=== PATIENT | male | born 1955 | race Caucasian/White ===

== ENCOUNTER → 2022-03-26 | Outpatient (CLI) | payer MEDICARE, SELFPAY ==
--- NOTE | 2022-03-26 10:54 | VDLE_ITS ---
Reason For Study: swelling RIGHT CFV is compressible, spontaneous, phasic, competent and demonstrates normal augmentation. FV is compressible, spontaneous, phasic, competent and demonstrates normal augmentation. POP V is compressible, spontaneous, phasic, competent and demonstrates normal augmentation. T/P Trunk is compressible. PTV is compressible. RT PerV is compressible. GSV is partially harvested. GSV below the knee is compressible. Procedure This is a venous duplex using B-mode, color flow and spectral Doppler. Exam performed in department. The exam was abbreviated due to the COVID 19 protocol. The exam was diagnostic. A preliminary report was called and/or faxed to Dr. Hoffman's nurse. VL/Venous Duplex US, Unilateral Interpretation Summary Deep veins of the right lower extremity are patent and compressible segmentally . There is no evidence of right lower extremity deep vein thrombosis. The right great sapheno us vein appears patent and compressible segmentally. Ordering Physician: Jarvis Hoffman Performed By: Himanshu Aleman RVT
== END | disposition home or self-care (01) ==
LOC: CVS 10:53
PROVIDERS: Referring Provider Surgery Trauma Surgery; Visit Provider Surgery Trauma Surgery
DX: R60.9 Edema, unspecified (principal); M79.89 Other specified soft tissue disorders
CPT/HCPCS: 93971

== ENCOUNTER → 2022-05-21 | Outpatient (CLI) | payer MEDICARE, SELFPAY ==
--- NOTE | 2022-05-21 09:14 | ADU_ITS ---
Reason For Study: Bilateral popliteal aneurysms, s/p Pop-PT bypass Right Velocities Left Velocities Ext. Iliac Artery, dist = 90.7 cm./sec. Ext Iliac Artery, dist = 84.6 cm./sec. Common Femoral Artery, mid = 49.3 cm./sec. Common Femoral Artery, mid = 58.8 cm./sec. Supf Femoral Artery, prox = 44.1 cm./sec. Supf. Femoral Artery, prox = 76.8 cm./sec. Supf Femoral Artery, mid = 51.4 cm./sec. Supf. Femoral Artery, mid = 78.5 cm./sec. Supf Femoral Artery, dist. = 22.6 cm./sec. Supf. Femoral Artery, dist = 72.3 cm./sec. Profunda Femoral Artery = 39.8 cm./sec. Profunda Femoral Artery = 44.3 cm./sec. Popliteal artery, no flow. Popliteal Artery, mid = 33 cm./sec. Popliteal to prox [employer] bypass. Post. Tibial Artery, prox = 65.1 cm./sec. Prox anastomosis, 35.5 cm/sec. Post Tibial Artery, mid = 50 cm./sec. Prox graft, 26.4 cm/sec. Post Tibial Artery, dist. = 61.3 cm./sec. Mid graft, 40 cm/sec. Peroneal Artery, prox = 40.5 cm./sec. Distal graft, 31.2 cm/sec. Peroneal Artery, mid = 50 cm./sec. Distal anastomosis, 46.9 cm/sec. Peroneal Artery,dist. = 33.9 cm./sec. Post. Tibial Artery, prox = 144.9 cm./sec. Ant.Tibial Artery, prox = 70.8 cm./sec. Post. Tibial Artery, mid = 32.2 cm./sec. Ant Tibial Artery, mid = 62.3 cm./sec. Post. Tibial Artery, dist = 27 cm./sec. Ant. Tibial Artery, distal = 56.6 cm./sec. Peroneal Artery, prox = 10 cm./sec. Popliteal artery, 1.26 x 1.33 x 1.21 cm. Peroneal Artery, mid = 13 cm./sec. Peroneal Artery,dist = 14.1 cm./sec. Ant. Tibial Artery, prox = 10 cm./sec. Ant. Tibial Artery, mid = 12.6 cm./sec. Ant. Tibial Artery, dist = 11 cm./sec. Procedure Exam performed in department. VL/US Art Duplex Bilat Lower Ext Interpretation Summary Patent right superficial femoral-posterior tibial bypass with decreased velocit ies throughout and elevated velocity at distal anastomosis consistent with >75% stenosis Left popliteal artery patent, 1.33 cm aneurysm present. Ordering Physician: Jarvis Hoffman Referring Physician: Mark Piña Performed By: Colleen Foster RVT
--- NOTE | 2022-05-21 09:14 | ART_ITS ---
Reason For Study: Bilateral popliteal aneurysms Procedure A bilateral lower extremity continuous wave Doppler with analog waveform analysis and ankle brachial indexes. Left Segmental Pressures Left brachial= 152mmHg. Left posterior tibial artery = 197mmHg. Left dorsalis pedis artery = 191mmHg. The left dorsalis pedis waveforms are triphasic. The left posterior tibial artery waveforms are triphasic. Right Segmental Pressures Right brachial= 156mmHg. Right posterior tibial artery = 74mmHg. Right dorsalis pedis artery = 121mmHg. The right dorsalis pedis waveforms are biphasic. The right posterior tibial artery waveforms are biphasic. Indices The right ankle brachial index by the dorsalis pedis is 0.78. The right ankle brachial index by the posterior tibial artery is 0.47. The left ankle brachial index by the dorsalis pedis is 1.22. The left ankle brachial index by the posterior tibial artery is 1.26. VL/Ankle Brachial Index Interpretation Summary Right ROXANNA 0.78, moderate arterial insufficiency. Doppler/PVR waveforms of the r ight ankle moderately diminished. Left ROXANNA 1.26, normal. Doppler/PVR waveforms of the left leg normal at rest. Ordering Physician: Jarvis Hoffman Referring Physician: Mark Piña Performed By: Colleen Foster RVT
== END | disposition home or self-care (01) ==
LOC: CVS 09:12
PROVIDERS: PCP Family Medicine; Referring Provider Surgery Trauma Surgery; Visit Provider Surgery Trauma Surgery
DX: I72.4 Aneurysm of artery of lower extremity (principal); Z48.812 Encounter for surgical aftercare following surgery on the circulatory system
CPT/HCPCS: 93922; 93925

== ENCOUNTER 2022-05-29 09:31 | Day surgery (SDC) | payer MEDICARE, SELFPAY ==
[2022-05-22 09:37] LABS: Absolute Lymphocyte Count 3.38 X10^3/uL (0.83-4.51); Absolute Neutrophil Count 2.8 X10^3/uL (2.0-7.7); Basophil# 0.15 X10^3/uL; Eosinophil# 0.28 X10^3/uL; Eosinophils% 3.8 % (0-5); Hematocrit 45.3 % (40-54); Hemoglobin 15.1 g/dL (13.0-16.5); Lymphocyte # 3.38 X10^3/ul (0.83-4.51); Lymphocyte % 45.9 % (19-41); Mean Corp Hgb Conc 33.3 g/dL (32-36); Mean Corpuscular Hgb 31.3 pg (27.0-32.0); Mean Platelet Vol. 10.1 fl (6.2-12.0); Monocyte% 8.2 % (0-10); NRBC Flagged by Analyzer 0 % (0-5); Neutrophil # 2.84 X10^3/uL (2.7-7.7); Neutrophil % 38.6 % (47-70); Platelet Count 305 K/mm3 (150-450); RBC Distribution Width CV 11.9 % (11.6-14.6); RBC Distribution Width SD 41.1 fl (35.1-43.9); Red Blood Count 4.82 M/mm3 (4.6-6.2); White Blood Count 7.4 K/mm3 (4.4-11.0)
[2022-05-22 09:59] LABS: Anion Gap 4 (5-15); BUN 14 mg/dL (7-18); Calcium,Total 8.8 mg/dL (8.5-10.1); Chloride 106 mmol/L (98-107); Creatinine, Serum 1.17 mg/dL (0.70-1.30); EST Glomerular Filtration Rate 67 mL/min (>60); Est Glom Filt Rate - Afr Amer 80 mL/min (>60); Glucose 113 mg/dL (74-106); Potassium 4.1 mmol/L (3.5-5.1); Sodium Level 139 mmol/L (136-145)
[2022-05-28 09:06] VITALS: BMI 34.7
[2022-05-29] VITALS (7 sets, daily range): BP systolic 147–163; BP diastolic 90–105; PULSE 57–71; RESP 16; TEMP 36.4–36.5; O2SAT 92–96
--- NOTE | 2022-05-29 10:25 | HP.PCM_ITS ---
[facility] - General General Date of Service: 05/29/22 Chief Complaint: Angiogram [facility] Narrative NGUYỄN HASSAN, is a 67 M who presents today for angiogram possible intervention. He is known to have bilateral popliteal aneurysms and is s/p repair of the right in October 2020 with saphenous bypass above knee to popliteal to PT, tibial thrombectomy. Lower extremity arterial duplex from 05/21/2022 revealed patent right superficial femoral-posterior tibial bypass with decreased velocities throughout and elevated velocity at distal anastomosis consistent with >75% stenosis. Patient also subsequently reported increase in symptoms similar to those he had prior to repair in E. Therefore, angiogram is being pursued to further evaluate and potentially address stenosis. Patient had discontinued Xarelto at office visit in March as imaging and symptoms had been stable to that point. He was restarted on the Xarelto in the last week leading up to surgery, he held two doses prior to procedure today. He has continued his daily ASA. He reports his symptoms have remained stable, no significant worsening. He denies N/V, F/C, CP, palpitations, presyncope/syncope, SOB today. He denies any significant medical events in interim since his last visit. No new medications. He is agreeable to proceeding with angiogram. [facility] Medical History Arterial aneurysm (~2020) Arthritis Hypertension Rectal bleed Thyroid disease Home Medications amlodipine 2.5 mg tablet (Norvasc) 2.5 mg PO DAILY 03/20/22 [History Last Taken 05/29/22] levothyroxine 25 mcg tablet (Synthroid) 25 mcg PO DAILY 03/20/22 [History Last Taken 05/29/22] rivaroxaban 20 mg tablet (Xarelto) 20 mg PO DAILY #1 TAB 03/20/22 [Rx Last Taken 05/26/22] aspirin 81 mg tablet,delayed release (Adult Aspirin Regimen) 81 mg PO DAILY 1 05/25/21 [History Last Taken 05/28/22] losartan 100 mg tablet (Cozaar) 100 mg PO DAILY 03/26/22 [History Last Taken Unknown] Allergy/AdvReac Type Severity Reaction Status Date / Time atrovastatin Allergy Unknown NEEDS Uncoded 03/26/22 09:23 FOLLOW-UP codiene Allergy Unknown NEEDS Uncoded 03/26/22 09:23 FOLLOW-UP antihistamines AdvReac Intermediate NEEDS Uncoded 03/26/22 09:23 FOLLOW-UP Family History Other Arthritis Malignant hyperthermia due to anesthesia Thyroid disorder Surgical History H/O hand surgery History of cholecystectomy (~11/2021) S/P popliteal-distal bypass surgery (~02/2021) Social History Smoking Status: Former smoker ROS Constitutional Constitutional: Denies change in weight, chills, difficulty sleeping, fatigue, fever(s), frequent falls, lethargy, night sweats or weakness Eyes Eyes: Denies blindness, blurry vision, change in vision, eye pain or ptosis ENT HEENT: Denies abnormal hearing, change in voice, hearing loss, loss taste/smell or vertigo Cardiovascular Cardiovascular: Denies abdominal pain, chest pain, claudication, cold extremi ties, cyanosis, diaphoresis, dyspnea, dyspnea on exertion, fatigue, hypertension, irregular heart rhythm, leg edema, leg ulcers, orthopnea, palpitations, radiating jaw, neck or arm pain or syncope Respiratory/Chest Respiratory/Chest: Denies cough, dyspnea, hemoptysis, nail bed cyanosis, bar- oral cyanosis, portable oxygen @ home, productive cough or wheezing Gastrointestinal Gastrointestinal: Denies abdominal pain, change in bowel habits, change in stool character, coffee ground emesis, melena, rectal bleeding or weight changes Genitourinary Genitourinary: Denies abdominal discomfort, burning urination, difficulty urinating or flank pain Musculoskeletal Musculoskeletal: Denies abnormal gait, difficulty walking, joint swelling, muscle cramps, muscle weakness or numbness Integumentary Integumentary: Denies change in pigmentation, changing lesions, erythema, lesions, rash, skin ulcer, unusual bruising or wounds Neurologic Neurologic: Denies abnormal gait, abnormal movements, abnormal speech, behavior changes, frequent falls, syncope, tingling or weakness Psychiatric Psychiatric: Denies behavioral changes, cognitive impairment or depression Endocrine Endocrinology: Denies change in body appearance, cold intolerance, excessive sweating, flushing, heat intolerance, palpitations, polydipsia, polyphagia or polyuria Hematologic/Lymphatic Hematologic/Lymphatic: Denies anemia, easy bleeding, easy bruising or lymphadenopathy Allergic/Immunologic Allergic/Immunologic: Denies seasonal rhinorrhea, throat swelling, tongue swelling, hives or asthma Vital Signs Vital Signs Vital Signs: Weight Weight: 228 lb Body Mass Index (BMI) 34.7 Physical Exam Narrative Exam Const General: cooperative, healthy appearing, comfortable, no acute distress and well developed Nutritional Appearance: well nourished Orientation: alert, awake and oriented x3 HENMT Head: normocephalic and atraumatic Ears: hearing grossly normal bilaterally Nose: external nose normal Eyes General: appearance normal, both eyes and all related structures EOM: EOM intact bilaterally Neck Neck: normal visual inspection, full ROM, no lymphadenopathy and trachea midline Thyroid: thyroid normal Lymphatic: no lymphadenopathy noted Resp Effort & Inspection: normal respiratory effort, able to speak in complete sentences, symmetric chest movement, no audible wheezes, not labored, no stridor and no use of accessory muscles Auscultation: clear to auscultation bilaterally Cardio Rate: regular rate Rhythm: regular rhythm Heart Sounds: no murmurs Bruits: no carotid bruits Pulses: brachial pulses present and radial pulses present Skin General: no rashes or lesions noted and no erythema Wounds: no wounds Neuro Cranial Nerves: CN's II-XI intact bilaterally and EOM intact bilaterally Speech: speech normal Gait: normal gait Motor: strength 5/5 throughout Sensory Exam: no sensory deficits noted Extremities Pulses: Normal: Right Dorsalis Pedis Pulse, Left Dorsalis Pedis Pulse, Right Posterior Tibial Pulse and Left Posterior Tibial Pulse Lower Extremity Edema: None: Left and +1: Right Psych Appearance: grossly normal and well kempt Mental Status: mental status grossly normal Mood: congruent mood Speech and Movement: speech and movement normal Thought Content: normal Judgment: judgment good Results Lab / Micro Data Result Diagrams: 05/22/22 08:47 05/22/22 08:47 Assessment & Plan Assessment/Plan (1) Popliteal artery aneurysm: PLAN: All of patients questions and concerns were answered, he remains agreeable to proceed as planned. Plan is to proceed with angiogram possible intervention.
--- NOTE | 2022-05-29 18:05 | OP.PCM_ITS ---
Report of Operation Date of Procedure: 05/29/22 Pre-Operative Diagnosis: stenosis of prior right above knee popliteal to PT byp ass Post-Operative Diagnosis: subacute, non-occlusive thrombus in right PT artery, bypass patent, subacute non-occlusive thrombus right above knee popliteal at proximal anastomosis Surgery/Procedure Performed:: aortogram, right lower extremity runoff Description of Surgical Findings:: subacute thrombus in above knee popliteal and PT arteries Surgeon: Jarvis Hoffman Type of Anesthesia: Local and Sedation,Conscious Estimated Blood Loss (mL): 5 Description of Procedure: HPI: Patient is a 67-year-old male with a previous right open popliteal artery aneurysm repair followed with serial duplex. Recently had a duplex which revealed what appeared to be velocity shift at the distal anastomosis drop in his ROXANNA. He is taken now for angiogram with possible intervention. Description of procedure: Upon obtaining informed consent and verification correct patient procedure and site patient was taken to [facility] where he was positioned prepped and draped in usual sterile fashion. Time was performed and conscious sedation administered with Versed and fentanyl. Skin over the left common femoral artery was anesthetized with 1% lidocaine and under ultrasound guidance the vessel was accessed in retrograde fashion using micropuncture needle and wire. This was then exchanged for micropuncture sheath through which injection femoral angiogram was performed revealing satisfactory location with n o extravasation or dissection. Through the micropuncture sheath [employer] wire is advanced abdominal aorta the micropuncture sheath exchanged out for a short 5 Indonesian sheath. Omni Flush cath was then advanced into the abdominal aorta and aortogram pelvic angiogram was performed. We then navigated the contralateral iliac system and advanced the catheter into the distal external leg artery. From this position we performed sequential right lower extremity angiography which revealed nonocclusive thrombus throughout the posterior tibial artery which was a dominant outflow as well as some nonocclusive thrombus at the proximal anastomosis. This was similar appearance to his prior events approximately 18 months ago which required open thrombectomy. Currently there is still contrast transit in brisk fashion across the bypass and good filling of the other tibial vessels via collaterals with further this would not need to be addressed emergently. The catheter then withdrawn and a 5 Indonesian minx deployed followed by 2 minutes of manual pressure with satisfactory hemostasis noted. Radiograph interpretation: Abdominal aorta normal caliber with no significant atherosclerosis or stenosis. Left common internal and external iliac artery widely patent with no atherosclerosis or stenosis Right common internal and external iliac arteries widely patent with no atherosclerosis or stenosis. Right common femoral artery and its bifurcation and profunda normal caliber with no atherosclerosis or stenosis. Right superficial artery popliteal artery patent with no atherosclerosis or stenosis. Above-knee popliteal artery which is site of the proximal anastomosis had nonocclusive mural thrombus, prior vein bypass widely patent with no stenosis and no thrombus. Distal anastomosis widely patent with no stenosis, and proximal posterior tibial artery patent. She will be on the anastomosis the posterior tibial artery had significant nonocclusive thrombus throughout the entirety of its length. There was collateral filling of the peroneal and anterior tibial artery all of which were patent down to the foot.
== END 2022-05-29 22:20 | disposition home or self-care (01) ==
LOC: CLSP 11:03 → PCU 17:19
PROVIDERS: Physician Assistant; PCP Family Medicine; Referring Provider Surgery Trauma Surgery; Visit Provider Surgery Trauma Surgery
DX: I72.4 Aneurysm of artery of lower extremity (principal); I82.431 Acute embolism and thrombosis of right popliteal vein; I82.441 Acute embolism and thrombosis of right tibial vein; I10 Essential (primary) hypertension; E07.9 Disorder of thyroid, unspecified; Z79.82 Long term (current) use of aspirin; Z79.01 Long term (current) use of anticoagulants; Z79.890 Hormone replacement therapy; Z79.899 Other long term (current) drug therapy; Z87.891 Personal history of nicotine dependence; Z95.820 Peripheral vascular angioplasty status with implants and grafts
CPT/HCPCS: 36200; 36245; 36415; 75625; 75710; 76937; 80048; 85025; 99152; 99153; C1760; C1769; J7040; Q9967

== ENCOUNTER → 2022-06-04 | Outpatient (CLI) | payer MEDICARE, SELFPAY ==
--- NOTE | 2022-06-04 12:34 | CT_ITS ---
STUDY: CTA CHEST, ABDOMEN T PELVIS WITH CONTRAST REASON FOR EXAM: Male, 67 years old. Arteriomegaly, multiple embolic events RADIATION DOSAGE (If Supplied By Facility): CTDIvol = ( 15.66 ) mGy, DLP = ( 1159.31 ) mGycm TECHNIQUE: Transaxial imaging was performed following intravenous administration of IV 100mL Isovue-370. Individualized dose optimization techniques were used for this CT. COMPARISON: Comparison is made with prior CT scan of the thorax dated 03/26/2021. FINDINGS: CHEST The lungs are normal. There is no demonstrated pleural abnormality. Normal heart and pericardium. Normal mediastinum. Normal hilar regions. Normal unenhanced pulmonary arteries. The root of the ascending thoracic aorta measures 4 cm in transverse dimension. This is upper limits of normal. Minimal atherosclerotic plaque formation of the aortic arch. Minimal amount of mural thrombus is seen along the descending thoracic aorta. There is tortuosity at the diaphragmatic hiatus into the abdominal aorta. The left common iliac arteries at the transverse dimension of 1.2 cm. The right common iliac has a transverse dimension of 0.94 cm. Normal osseous structures. There is no demonstrated abnormality of the visualized upper abdomen. ABDOMEN There is decreased attenuation of the liver consistent with steatosis. There are surgical clips in the gallbladder fossa consistent with a prior cholecystectomy. Normal spleen. Normal pancreas. Normal bilateral adrenal glands. Normal right kidney. Normal left kidney. Normal visualized stomach. Normal small intestine. There are scattered colonic diverticula consistent with diverticulosis. The appendix is visualized and appears normal. Normal abdominal aorta. Normal inferior vena cava. Normal retroperitoneum. There is a small umbilical hernia containing fat. There are mild degenerative changes of the visualized lumbar spine. PELVIS Normal urinary bladder. Prostatic enlargement. The prostate measures 4.5 cm x [address]/CTA Chst, Abd, Pel W and/or WO IMPRESSION: The root of the ascending thoracic aorta measures 4 cm in transverse dimension. Minimal atherosclerotic plaque formation of the aortic arch. Minimal amount of mural thrombus is seen along the ascending thoracic aorta. Diffuse fatty infiltration of the liver. Electronically Signed: Joni Somers MD at 13:43 EST ,
--- NOTE | 2022-06-04 12:34 | ECHOD_ITS ---
Reason For Study: EMBOLI Procedure This was a 2D Doppler, Color Flow transthoracic echocardiogram. Exam performed in department. Left Ventricle Normal LV size. Left ventricular systolic function is normal. The estimated ejection fraction is 55 %. Stage 1 diastolic dysfunction. No regional wall motion abnormalities noted. Right Ventricle Normal RV size. Normal systolic function. Atria Normal left atrium. Normal right atrium. Bubble contrast study negative for right to left interatrial shunt. Mitral Valve Normal mitral valve. Tricuspid Valve Normal tricuspid valve. Aortic Valve Normal aortic valve. Trisinus/trileaflet aortic valve. Pulmonic Valve Normal pulmonic valve. Great Vessels Normal aortic root. The pulmonary artery is normal size. Normal inferior vena cava. Pericardium/Pleural No pericardial effusion. Medication 22 gauge I.V. with prn adaptor inserted into left arm. Performed a rapid injection of agitated mix of 9 cc saline and 1cc air to assess for atrial septal defect. MMode/2D Measurements & Calculations LVIDd: 5.1 cm IVSd: 1.3 cm Ao root diam: 4.0 cm LVIDs: 3.5 cm LVPWd: 1.1 cm RVDd: 2.8 cm FS: 30.7 % LAV(MOD-bp): 37.9 ml LA A4 area: 12.7 cm2 LA dimension(2D): 4.0 cm LAV(MOD-bp) Indexed: 17.5 ml/m2 LAV(MOD-sp2): 39.0 ml LAV(MOD-sp4): 34.0 ml Time Measurements MV dec time: 0.30 sec Doppler Measurements & Calculations MV E max casey: 60.5 cm/sec Lat Peak E' Casey: 6.6 cm/sec Med Peak E' Casey: 4.9 cm/sec MV A max casey: 69.4 cm/sec E/E' lat: 9.1 E/E' med: 12.4 MV E/A: 0.87 MV dec slope: 204.2 cm/sec2 Ao V2 max: 109.8 cm/sec LV V1 max: 86.7 cm/sec Ao max P.8 mmHg LV V1 max P.0 mmHg Ao V2 mean: 75.8 cm/sec LV V1 mean P.6 mmHg Ao mean P.6 mmHg LV V1 mean: 59.5 cm/sec Ao V2 VTI: 26.3 cm LV V1 VTI: 19.9 cm AV (velocity ratio): 0.76 PA V2 max: 75.1 cm/sec ECHO/Echo Complete Interpretation Summary Normal LV size. Left ventricular systolic function is normal. The estimated ejection fraction is 55 %. Stage 1 diastolic dysfunction. Bubble contrast study negative for right to left interatrial shunt. Ordering Physician: Jarvis Hoffman Referring Physician: Mark Meier Performed By: Angelica Vargas RDCS, RVT
== END | disposition home or self-care (01) ==
LOC: CVS 12:34
PROVIDERS: PCP Family Medicine; Visit Provider Surgery Trauma Surgery
DX: I71.9 Aortic aneurysm of unspecified site, without rupture (principal); I74.3 Embolism and thrombosis of arteries of the lower extremities; Z86.79 Personal history of other diseases of the circulatory system; Z98.890 Other specified postprocedural states
CPT/HCPCS: 71275; 74174; 93306; Q9967

== ENCOUNTER 2022-06-10 09:20 | Day surgery (SDC) | payer MEDICARE, SELFPAY ==
--- NOTE | 2022-06-04 12:39 | EKG12_ITS ---
Test Reason : PRE OP Blood Pressure : / mmHG Vent. Rate : 055 BPM Atrial Rate : 055 BPM P-R Int : 184 ms QRS Dur : 092 ms QT Int : 414 ms P-R-T Axes : 042 021 039 degrees QTc Int : 396 ms Sinus bradycardia Otherwise normal ECG Confirmed by MIO VALLADARES, ROSIBEL ([id number]), offline editor BRENDAN BENAVIDEZ ([id number]) on 06/05/2022 9:52:10 AM Referred By: KEELEY Confirmed By:ROSIBEL LIEBERMAN MD
[2022-06-04 16:02] LABS: Thyroid Stim Hormone (TSH) 3.48 uIU/mL (0.358-3.74)
[2022-06-10] VITALS (16 sets, daily range): BP systolic 92–163; BP diastolic 62–91; PULSE 58–70; RESP 16–18; TEMP 35.7–36.6; O2SAT 94–100; BMI 34.4
--- NOTE | 2022-06-10 | THRO_PTH ---
PATIENT: NGUYỄN [place]ASSAN [place] [facility] [id number] AGE/SX: 67/M ROOM: RE06/10/[address]: Dr. Jarvis Hoffman MD : [id number] BED: DIS: 06/11/2022 SPEC #: [id number] RECD: 06/11/22 11:21 STATUS: GRETTA REDu #: [id number] PRADEEP: 06/10/22 00:[address]: Jarvis Hoffman DEPT: SURGICAL PATHOLOGY RECD BY: Tan Cruz ENTERED: 06/11/22 11:21 SP TYPE: THROMBUS OTHR DR: Mark Piña Tissues: BLOOD CLOT, NOS Procedures: Surgery Specimen Level III HEADER OPERATION: Lower extremity open thrombectomy angiogram and popliteal PRE-OP DIAGNOSIS: Subacute non-occlusive thrombus in right PT artery TISSUE SUBMITTED: Right leg thrombus MICROSCOPIC DIAGNOSIS Right leg thrombus, thrombectomy: Fragments of organized thrombus. SJ:delio 06/12/2022 MICROSCOPIC DESCRIPTION Slides are reviewed. GROSS DESCRIPTION Received in fixative is one container labeled with the patient's name and designated right leg thrombus. The specimen consists of three elongated pieces of barney, hemorrhagic tissue measuring in aggregate 2.5 x 1 x 0.1 cm. The entire specimen is submitted in one cassette. / SJ:rg 06/11/2022 TC:5 [facility]: [id number]
[2022-06-10] MEDS: Lactated Ringers 1,000 ML 15 ML IV ×3 (10:20→13:58)
--- NOTE | 2022-06-10 10:53 | HP.PCM_ITS ---
History and Physical [facility] - General General Date of Service: 05/29/22 Chief Complaint: Angiogram HPI Narrative NGUYỄN HASSAN, is a 67 M who presents today for angiogram possible intervention. He is known to have bilateral popliteal aneurysms and is s/p repair of the right in October 2020 with saphenous bypass above knee to popliteal to PT, tibial thrombectomy. Lower extremity arterial duplex from 05/21/2022 revealed?patent right superficial femoral-posterior tibial bypass with decreased velocities throughout and elevated velocity at distal anastomosis consistent with >75% stenosis. Patient also subsequently reported increase in symptoms similar to those he had prior to repair in RLE. Therefore, angiogram is being pursued to further evaluate and potentially address stenosis. Patient had discontinued Xarelto at office visit in March as imaging and symptoms had been stable to that point. He was restarted on the Xarelto in the last week leading up to surgery, he held two doses prior to procedure today. He has continued his daily ASA. He reports his symptoms have remained stable, no significant worsening. He denies N/V, F/C, CP, palpitations, presyncope/syncope, SOB today. He denies any significant medical events in interim since his last visit. No new medications. He is agreeable to proceeding with angiogram. [facility] Medical History? Arterial aneurysm (~2020) Arthritis Hypertension Rectal bleed Thyroid disease Home Medications amlodipine 2.5 mg tablet (Norvasc) 2.5 mg PO DAILY 03/20/22 [History Last Taken 05/29/22] levothyroxine 25 mcg tablet (Synthroid) 25 mcg PO DAILY 03/20/22 [History Last Taken 05/29/22] rivaroxaban 20 mg tablet (Xarelto) 20 mg PO DAILY #1 TAB 03/20/22 [Rx Last Taken 05/26/22] aspirin 81 mg tablet,delayed release (Adult Aspirin Regimen) 81 mg PO DAILY 03/25/22 [History Last Taken 05/28/22] losartan 100 mg tablet (Cozaar) 100 mg PO DAILY 03/26/22 [History Last Taken Unknown] Allergy/AdvReac Type Severity Reaction Status Date / Time atrovastatin Allergy Unknown NEEDS Uncoded 03/26/22 09:23 ? ? ? FOLLOW-UP ? ? codiene Allergy Unknown NEEDS Uncoded 03/26/22 09:23 ? ? ? FOLLOW-UP ? ? antihistamines AdvReac Intermediate NEEDS Uncoded 03/26/22 09:23 ? ? ? FOLLOW-UP ? ? Family History? Other Arthritis Malignant hyperthermia due to anesthesia Thyroid disorder Surgical History? H/O hand surgery History of cholecystectomy (~11/2021) S/P popliteal-distal bypass surgery (~02/2021) Social History? Smoking Status:? Former smoker ROS Constitutional Constitutional: Denies change in weight, chills, difficulty sleeping, fatigue, fever(s), frequent falls, lethargy, night sweats or weakness Eyes Eyes: Denies blindness, blurry vision, change in vision, eye pain or ptosis ENT HEENT: Denies abnormal hearing, change in voice, hearing loss, loss taste/smell or vertigo Cardiovascular Cardiovascular: Denies abdominal pain, chest pain, claudication, cold extremities, cyanosis, diaphoresis, dyspnea, dyspnea on exertion, fatigue, hypertension, irregular heart rhythm, leg edema, leg ulcers, orthopnea, palpitations, radiating jaw, neck or arm pain or syncope Respiratory/Chest Respiratory/Chest: Denies cough, dyspnea, hemoptysis, nail bed cyanosis, bar- oral cyanosis, portable oxygen @ home, productive cough or wheezing Gastrointestinal Gastrointestinal: Denies abdominal pain, change in bowel habits, change in stool character, coffee ground emesis, melena, rectal bleeding or weight changes Genitourinary Genitourinary: Denies abdominal discomfort, burning urination, difficulty urinating or flank pain Musculoskeletal Musculoskeletal: Denies abnormal gait, difficulty walking, joint swelling, muscle cramps, muscle weakness or numbness Integumentary Integumentary: Denies change in pigmentation, changing lesions, erythema, lesions, rash, skin ulcer, unusual bruising or wounds Neurologic Neurologic: Denies abnormal gait, abnormal movements, abnormal speech, behavior changes, frequent falls, syncope, tingling or weakness Psychiatric Psychiatric: Denies behavioral changes, cognitive impairment or depression Endocrine Endocrinology: Denies change in body appearance, cold intolerance, excessive sweating, flushing, heat intolerance, palpitations, polydipsia, polyphagia or polyuria Hematologic/Lymphatic Hematologic/Lymphatic: Denies anemia, easy bleeding, easy bruising or lymphadenopathy Allergic/Immunologic Allergic/Immunologic: Denies seasonal rhinorrhea, throat swelling, tongue swelling, hives or asthma Vital Signs Vital Signs Vital Signs: Weight Weight: ? 228 lb? Body Mass Index (BMI) ? 34.7? Physical Exam Narrative Exam Const General: cooperative, healthy appearing, comfortable, no acute distress and well developed Nutritional Appearance: well nourished Orientation: alert, awake and oriented x3 HENMT Head: normocephalic and atraumatic Ears: hearing grossly normal bilaterally Nose: external nose normal Eyes General: appearance normal, both eyes and all related structures EOM: EOM intact bilaterally Neck Neck: normal visual inspection, full ROM, no lymphadenopathy and trachea midline Thyroid: thyroid normal Lymphatic: no lymphadenopathy noted Resp Effort & Inspection: normal respiratory effort, able to speak in complete sentences, symmetric chest movement, no audible wheezes, not labored, no stridor and no use of accessory muscles Auscultation: clear to auscultation bilaterally Cardio Rate: regular rate Rhythm: regular rhythm Heart Sounds: no murmurs Bruits: no carotid bruits Pulses: brachial pulses present and radial pulses present Skin General: no rashes or lesions noted and no erythema Wounds: no wounds Neuro Cranial Nerves: CN's II-XI intact bilaterally and EOM intact bilaterally Speech: speech normal Gait: normal gait Motor: strength 5/5 throughout Sensory Exam: no sensory deficits noted Extremities Pulses: Normal: Right Dorsalis Pedis Pulse, Left Dorsalis Pedis Pulse, Right Posterior Tibial Pulse and Left Posterior Tibial Pulse Lower Extremity Edema: None: Left and +1: Right Psych Appearance: grossly normal and well kempt Mental Status: mental status grossly normal Mood: congruent mood Speech and Movement: speech and movement normal Thought Content: normal Judgment: judgment good Results Lab / Micro Data Result Diagrams: 05/22/22 08:47? 05/22/22 08:47? Assessment & Plan Assessment/Plan (1) Popliteal artery aneurysm: -open thrombectomy -IVUS, plan covered stent of proximal anastomosis
[2022-06-10] MEDS: Cefazolin 2 GM in 0.9% Normal Saline 100 ML IV (11:07)
[2022-06-10] MEDS: Heparin Injection (Vial) 5,000 UNIT/ML VIAL 5000 UNIT ×2 (11:49→13:24)
--- NOTE | 2022-06-10 12:35 | RAD_ITS ---
PROCEDURE: ANGIOGRAM - right lower extremity. REASON FOR EXAM: Male, 67 years old. RT LOWER EXTREMITY OPEN THROMBECTOMY ANGIOGRAM POP FLUOROSCOPY TIME (if supplied): (14 minutes and 26 seconds) minutes/seconds. A cine run of 78 images was obtained. RAD/Fluoroscopy 1 Hr or Less IMPRESSION: Intraoperative imaging services was provided for thrombectomy and stent placement of the popliteal artery. Electronically Signed: Joni Somers MD at 8:04 EST ,
[2022-06-10] MEDS: HEPARIN/D5w 25,000 UNITS 25,000 UNITS/250 ML IV.SOLN. 5 UNITS CONT INF (16:45)
[2022-06-10] MEDS: Lidocaine 1% (30 ml sdv) 30 ML Vial (16:46)
--- NOTE | 2022-06-10 17:19 | OP.PCM_ITS ---
Report of Operation Date of Procedure: 06/10/22 Pre-Operative Diagnosis: Subacute thrombosis right popliteal artery, right post erior tibial artery Post-Operative Diagnosis: Same Surgery/Procedure Performed:: Open thrombectomy of right lower extremity via thigh and lower leg incision Angiogram and intravascular ultrasound right SFA, right popliteal artery right posterior tibial artery Angioplasty and covered stent of right above-knee popliteal artery Angioplasty right PT artery Description of Surgical Findings:: Continued nonocclusive thrombus in the right popliteal artery and right posterior tibial artery initially visualized during diagnostic angiogram. This persisted despite multiple attempts at Phillip embolectomy. Satisfactory coverage of the popliteal thrombus with good stent expansion after angioplasty and stenting. Improved transit of contrast through the posterior tibial after angioplasty, but still some luminal irregularity. Biphasic dorsalis pedis and posterior tibial signals. Surgeon: Jarvis Hoffman Type of Anesthesia: General Estimated Blood Loss (mL): 100 Description of Procedure: HPI: Patient is a 67-year-old male with previous right above-knee popliteal to posterior tibial bypass with saphenous vein for thrombosed popliteal aneurysm. His surveillance imaging revealed drop in ROXANNA and diminished flow through the bypass suspicious for stenosis. He underwent diagnostic angiogram which revealed nonocclusive thrombus in the popliteal artery, patent bypass with no regularity, and nonocclusive thrombus in the posterior tibial artery which is the dominant outflow. He presents now for open thrombectomy with plans for covered stent to the proximal anastomosis as it is suspected that the flow dynamics in this location are favorable for thrombus formation as this is a second embolic event. Description of procedure: Upon obtaining informed consent and verification correct patient procedure site patient was taken to the operating room where he was placed under general anesthesia. He was then positioned prepped and draped in usual sterile fashion a timeout was performed. Longitudinal incision was made over the superficial femoral artery in the proximal thigh, and Bovie dissection carried down to level the fascia. Self-retaining retractors) position and the fascia was incised. Bovie dissection was then used to mobilize the musculature and retracted anteriorly exposing the neurovascular bundle. Sharp section then used to dissect free the superficial femoral artery with care taken to identify and protect adjacent nerves. A right angle used to place a vessel loop proximal and distal we then turned our attention to the posterior tibial artery exposure. Longitudinal incision was made above the malleolus, proximal to the prior incision for the prior thrombectomy. Both electrocautery was dissect down through subcutaneous tissue down the level of the fascia and t he fascia was incised. Sharp dissection used to dissect free the posterior tibial artery and a right angle used to place a vessel loop. Patient was then heparinized and allowed to circulate for 3 minutes after which a micropuncture needle and wire was used to access the superficial femoral artery in antegrade fashion. This then exchanged out for micropuncture sheath through which a hand-injection subtraction angiography was performed which confirmed continued presence of the thrombus despite anticoagulation for several weeks, continued patency of the popliteal PT bypass, and continued nonocclusive thrombus in the PT. Is felt that to help decrease the opportunity for further embolic event that occluding the inflow and Phillip embolectomy would be appropriate so the proximal superficial artery was clamped in the distal occluded with a vessel loop. Micropuncture sheath was then withdrawn and the puncture site extended transversely with Quiroz scissors. I then advanced a 4 Phillip antegrade to distance well beyond the proximal anastomosis inflated and withdrew the balloon. After multiple passes no thrombus was returned and repeat angiography revealed that the thrombus was unchanged. Concerned this was so chronic and adherent to the wall and then a location where there was a large caliber inflow vessel at the anastomosis that we would not be able to successfully retrieve the thrombus. At this point went then created transverse arteriotomy extended Quiroz scissors on the posterior tibial artery and advanced a 3 Phillip retrograde through the posterior tibial artery inflated withdrew. We did retrieve some very chronic thrombus but not volume that we expected given the angiogram. We then performed subtraction angiography which revealed continued nonocclusive mural thrombus. To help further define the extent of thrombus as well as to get appropriate sizing for the stenting intervention ultrasound and brought on the field and a 5 Sudanese sheath placed antegrade in the SFA. Through this sheath using a glide wire and catheter we navigated into the bypass and ultimately advanced into the posterior tibial artery. The Glidewire then exchanged out for an 014 wire which was advanced further down the PT and ultimately exteriorized through the PTV arteriotomy. Intravascular ultrasound was then advanced over the wire through the 5 Sudanese sheath and recorded pullback of the posterior tibial artery popliteal artery and superficial femoral artery was performed. This confirmed extent and location of thrombus at the proximal anastomosis, and the posterior tibial artery, as well as give accurate sizing for stent selection. In order to cover the entire length of thrombus and to get appropriate sizing to [place] Viabahn stents were selected. First an 8 mm x 5 [place] Viabahn was brought on the field and prepped for manufactures instructions. It was advanced in the position within the proximal portion of the bypass with satisfactory overlap onto the vessel beyond the thrombus and proximal extent into the popliteal artery. This was then deployed in position and a second stent a [place] Viabahn 10 x 5 brought on the field and prepped. This was then advanced in the position with satisfactory overlap into the initial stent and satisfactory coverage proximal to the thrombus. At the same stent was deployed the overlap site was postdilated with a 8 mm x 4 angioplasty balloon, followed by a 6 mm x 4 angioplasty of the distal landing zone. Repeat angiography revealed satisfactory contrast transit across the stent with no further visualized mural thrombus. Intravascular sound then advanced via the posterior tibial arteriotomy over the 014 wire and a recorded pullback of the SFA popliteal and posterior tibial arteries were performed. This confirmed satisfactory stent placement with no thrombus protruding beyond the stent, good wall apposition proximal and distal, and satisfactory complete stent expansion in the area of thrombus. See no further need for intervention of the proximal vessel the intravascular sound was again pulled down to the posterior tibial which continue to show mural thrombus. A 3 Phillip was then advanced over the 014 wire and i nflated withdrawn under fluoroscopic guidance still with only minimal thrombus returned and still with a luminal irregularity with contrast injection. Suspect this thrombus was too chronic to be extracted so a 3 mm x 40 angioplasty balloon was then brought on the field and advanced via the proximal sheath over the 014 wire. Then positioned in the posterior tibial artery inflated nominal for 3 mi nutes then deflated withdrawn. This showed some improvement on repeat angiography though still some stenosis, and there was improved contrast transit. So that further aggressive efforts may result in an unfavorable result so was felt we would leave the luminal regularity as it is. The 8 Sudanese sheath was then withdrawn proximally and the arteriotomy repaired transversely with 5-0 Prolene. Pro-glide suture line vessels were backbled and the lumen flushed heparinized saline. After placing the clamps are satisfactory hemostasis noted. We then withdrew the wire from the posterior tibial artery access and repaired the vessel in transverse fashion using 7-0 Prolene. Carotid laceration the vessel backbled and after completing the suture line satisfactory stasis was noted. There is a very prominent pulse in the posterior tibial artery and Doppler signal was preocclusive/obstructive sounding so the posterior tibial was an exercise migrated puncture and hand-injection angiography of the foot runoff was performed. This revealed abrupt occlusion of the posterior tibial beyond our arteriotomy. The skin incision was then extended and further dissection carried down mobilizing the posterior tibial for several centimeters. The more distal vessel was then dissected free and a right angle used to place a vessel loop. Longitudinal arteriotomy was then created and extended with Quiroz s cissors revealed significant amount of mural thrombus that was very chronic in nature and very adherent that did not get evacuated with her thrombectomy efforts. This was then extracted and a satisfactory vessel lumen was now observed. 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 Despite multiple efforts to get a Phillip or dilator to pass this was unsuccessful, and the suspected this was very chronically occluded likely back to prior to his popliteal aneurysm treatment. There was a least outflow so was felt that this would be consistent with continued patency of the vessel so a bovine pericardial patch was then secured in position using a 7-0 Prolene in a running fashion. Part of the suture line vessel backbled and after completing suture line clamps removed. There is satisfactory stasis and a less prominent pulse in the posterior tibial artery as well as a nonocclusive Doppler signal. Incision were then closed with 3-0 Vicryl and 4 Monocryl for the thigh incision followed by 3-0 Vicryl in interrupted nylon for the ankle incision. The occlusion case the patient was awake from anesthesia taken to recovery with dissipated admission to the PCU. Grafts/Implants Used: [place] Vi[place]ahn 8 x 5, 10 x 5
--- NOTE | 2022-06-10 20:26 | SUR.PHASEI ---
AT APPROXIMATELY 1900, THE PATIENT C/O TREMORS IN HIS LOWER EXTREMITIES. HE STATED THAT HE HAS EXPERIENCED THIS WITH A PREVIOUS SURGERY. WITH THE PREVIOUS SURGERY, HIS TREMORS EXTENDED THROUGHOUT HIS BODY. I OFFERED TO GIVE HIM DEMEROL IV ORDERED PRN. THE PATIENT REFUSED. AGNES BAL CRNA CAME TO BEDSIDE AND SPOKE WITH PATIENT FOR 20+ MIN.
--- NOTE | 2022-06-10 21:58 | CASEMGMT ---
SW Note Patient's was inquiring about security's availability to escort her to her car. SW explained security was responding to a Code on the floor and was not currently available, however, SW offered to escort patient's to her vehicle. Patient's was in agreement explaining her didn't want her to walk alone. SW engaged patient's in conversation and provided emotional support until patient's got to her car. Kita Clements MSW, POOJA
[2022-06-11] VITALS (9 sets, daily range): BP systolic 144–167; BP diastolic 74–92; PULSE 67–78; RESP 16–18; TEMP 36.3–36.9; O2SAT 95–99
[2022-06-11] MEDS: Losartan Potassium 100 MG Tablet PO (00:02)
[2022-06-11] MEDS: KCL 20MEQ in D5.45NS 20 MEQ/1,000 ML IV.SOLN. 100 MEQ IV (00:02)
[2022-06-11 00:17] LABS: Partial Thromboplast Time 34.2 Seconds (24.1-36.2)
[2022-06-11] MEDS: Heparin Injection (Vial) 5,000 UNIT/ML VIAL IV (01:06)
[2022-06-11] MEDS: Levothyroxine 25 MCG TABLET PO (06:17)
[2022-06-11 07:33] LABS: Absolute Lymphocyte Count 1.98 X10^3/uL (0.83-4.51); Absolute Neutrophil Count 6.8 X10^3/uL (2.0-7.7); Basophil# 0.02 X10^3/uL; Basophil% 0.2 % (0-1); Hematocrit 42.7 % (40-54); Hemoglobin 13.5 g/dL (13.0-16.5); Lymphocyte # 1.98 X10^3/ul (0.83-4.51); Lymphocyte % 21.1 % (19-41); Mean Corp Hgb Conc 31.6 g/dL (32-36); Mean Corpuscular Hgb 32.1 pg (27.0-32.0); Mean Corpuscular Volume 101.7 fL (80-94); Mean Platelet Vol. 9.8 fl (6.2-12.0); Monocyte# 0.54 X10^3/uL; Monocyte% 5.8 % (0-10); NRBC Flagged by Analyzer 0 % (0-5); Neutrophil # 6.81 X10^3/uL (2.7-7.7); Neutrophil % 72.5 % (47-70); Platelet Count 233 K/mm3 (150-450); RBC Distribution Width CV 12.7 % (11.6-14.6); RBC Distribution Width SD 47.2 fl (35.1-43.9); White Blood Count 9.4 K/mm3 (4.4-11.0)
[2022-06-11 08:03] LABS: Anion Gap 9 (5-15); BUN 14 mg/dL (7-18); BUN/Creat Ratio 11.9 RATIO (10-20); Calcium,Total 8.2 mg/dL (8.5-10.1); Chloride 105 mmol/L (98-107); Creatinine, Serum 1.18 mg/dL (0.70-1.30); EST Glomerular Filtration Rate 66 mL/min (>60); Est Glom Filt Rate - Afr Amer 80 mL/min (>60); Estimated Creatinine Clearance 60.38 ml/min; Glucose 148 mg/dL (74-106); Potassium 3.7 mmol/L (3.5-5.1); Sodium Level 139 mmol/L (136-145)
[2022-06-11 08:37] LABS: Partial Thromboplast Time 30.4 Seconds (24.1-36.2)
[2022-06-11] MEDS: amLODIPine 2.5 MG Tablet PO (09:05)
[2022-06-11] MEDS: Clopidogrel Bisulfate 300 MG Tablet PO (09:06)
--- NOTE | 2022-06-11 11:48 | DS.PCM_ITS ---
Providers Date of Admission: 06/10/22 Primary Care Physician: Mark Piña Reason For Visit: RT LOWER EXT OPEN THROMBECTOMY ANGIOGRAM WITH... Medications at Discharge Home Medications amlodipine 2.5 mg tablet (Norvasc) 2.5 mg PO DAILY 03/20/22 levothyroxine 25 mcg tablet (Synthroid) 25 mcg PO DAILY 03/20/22 aspirin 81 mg tablet,delayed release (Adult Aspirin Regimen) 81 mg PO DAILY 03/25/22 losartan 100 mg tablet (Cozaar) 100 mg PO QHS 03/26/22 rivaroxaban 20 mg tablet (Xarelto) 20 mg PO 1800 06/03/22 clopidogrel 75 mg tablet (Plavix) 75 mg PO DAILY #90 tabs 06/11/22 Hospital Course Operations - (Open thrombectomy of right lower extremity via thigh and lower leg incision Angiogram and intravascular ultrasound right SFA, right popliteal artery right posterior tibial artery Angioplasty in covered stent of right above-knee popliteal artery) Summary of Care Provided Hospital Course: The patient was routinely admitted for hemodynamic monitoring following open thrombectomy of R popliteal and posterior tibial arteries and angioplasty/placement of covered stent of right above-knee popliteal artery, he is POD#1. He tolerated the procedure well. Patient was maintained on low-dose heparin drip following surgery. Overnight following the procedure, blood was noted in the patient's urine and he admitted to some pain with urination, one episode. The blood preceded the urine stream, pain only with urination, no other associated abdominal pain. This resolved, no hematuria noted today. This was likely secondary to traumatic marrero catheter placement. Patient has remained hemodynamically stable throughout his stay. Palpable pulses and strong doppler signals in RLE. Incision sites with satisfactory appearance, no excessive bleeding, swelling, hematoma. Plavix 300mg was given this morning, will continue Plavix 75mg daily at home for at least 1 year. Xarelto 20mg was restarted, will continue daily at home until next office visit with plan to transition to ASA as appropriate. No further hematuria or other bleeding complication. Heparin was discontinued. With no bleeding complications, stable vitals, and stable RLE pulses/signal patient felt to be stable for discharge. Patient was discharged in satisfactory medical condition with close follow-up scheduled in office. Physical Exam Const oriented x3 and no apparent distress Resp normal respiratory effort and clear to auscultation bilaterally Cardio regular rate and regular rhythm Extremity Extremity Narrative: RLE with medial thigh and lower leg incision sites, C/D/I, no swelling/hematoma, palpable pulses with satisfactory doppler signals. Skin no rashes or lesions noted General Skin Exam: Negative for erythema, mottling, petechiae, purpura or pallor Wound Narrative: Surgical insicions as noted in R thigh and lower leg. Weight / BMI Weight Weight: 226 lb 3.108 oz Body Mass Index (BMI) 34.4 ABG / Lab / Microbiology Data Result Diagrams: 06/11/22 07:14 06/11/22 07:14 Laboratory: Laboratory Results - last 24 hr 06/10/22 23:52: APTT 34.2 06/11/22 07:14: WBC 9.4, RBC 4.20 L, Hgb 13.5, Hct 42.7, MCV 101.7 H, MCH 32.1 H , MCHC 31.6 L, RDW Std Deviation 47.2 H, RDW Coeff of Kelly 12.7, Plt Count 233, MPV 9.8, Immature Gran % (Auto) 0.400, Neut % (Auto) 72.5 H, Lymph % (Auto) 21.1, [place] % (Auto) 5.8, Eos % (Auto) 0.0, Baso % (Auto) 0.2, Absolute Neuts (auto) 6.8, Absolute Lymphs (auto) 1.98, Nucleated RBC % 0 06/11/22 07:14: Sodium 139, Potassium 3.7, Chloride 105, Carbon Dioxide 25.0, Anion Gap 9, BUN 14, Creatinine 1.18, Estim Creat Clear Calc 60.38, Est GFR (MDRD) Af Amer 80, Est GFR (MDRD) Non-Af 66, BUN/Creatinine Ratio 11.9, Glucose 148 H, Calcium 8.2 L 06/11/22 07:14: APTT 30.4 Radiography Diagnostic Testing: Radiology Impression Fluoroscopy 06/10/22 12:35 IMPRESSION: Intraoperative imaging services was provided for thrombectomy and stent placement of the popliteal artery. Electronically Signed: Joni Somers MD at 8:04 EST , D/C Instructions Discharge Diet: No restrictions Discharge Activity: May Drive (tomorrow) and May Shower (tomorrow) May shower in (days): 1 Weight Bearing Status: Weight bearing as tolerated Lifting Restricted to (Lbs): 20 Lifting Restrictions: Do not lift greater than 20 lbs for 2 weeks Call your doctor if your incision/area has: Sudden Increased Bleeding, Increased Pain/ Swelling, Increased Redness and Foul Smelling Discharge Call your doctor if you observe: Fever of 101 or Higher and Uncontrolled pain Remove Dressing in: 1 day Additional Instructions: Take Plavix and Xarelto at home starting tomorrow. Hold ASA until next office visit. You may remove the dressings over the incision sites tomorrow. Sutures will be removed at your next office visit. May rinse incision sites with soap and water, pat dry. Keep clean and dry. Do not submerge incision sites in water/take a bath for 3 weeks. Do not lift greater than 20lbs for 2 weeks. Proceed with light activity/walking as tolerated, no rigorous activity/climbing for 6-8 weeks. Follow-up in the vascular surgery office on 06/25/2022 at 1 pm. Please Follow Up With: Cleopatra Singh PA When: 06/25/2022 at 1 pm Meaningful Use Info Meaningful Use Diagnoses (Choose all that apply): None applicable Discharge Plan Admission Admit Date/Time: 06/10/22 16:39 Primary Reason for Your Visit: RLE open thrombectomy and angioplasty Attending Provider: Jarvis Hoffman Primary Care Provider: Mark Piña Discharge Orders/Prescriptions Prescriptions: New clopidogrel [Plavix] 75 mg tablet 75 mg PO DAILY Qty: 90 2RF Continued amlodipine [Norvasc] 2.5 mg tablet 2.5 mg PO DAILY levothyroxine [Synthroid] 25 mcg tablet 25 mcg PO DAILY losartan [Cozaar] 100 mg tablet 100 mg PO QHS Xarelto 20 mg tablet 20 mg PO 1800 Label Comments: LAST DOSE 06/08/22 Rx Instructions: must administer with evening meal Held aspirin [Adult Aspirin Regimen] 81 mg tablet,delayed release (DR/EC) 81 mg PO DAILY Hold Instructions: Resume on 06/26/22. Referrals / Follow Up: Piña,Rishin [Primary Care Provider] - Disposition Disposition (needs filled in before D/C Order can be placed): Home, Self Care Charges/Coding Visit Charges Inpatient E&M: 46963 Disch Hosp
[2022-06-11] MEDS: Aspirin E.C. 81 MG Tablet PO (12:03)
[2022-06-11] MEDS: Rivaroxaban 20 MG Tablet PO (12:03)
--- NOTE | 2022-06-11 13:00 | CASEMGMT ---
RN FRIDA Face to Face with patient for initial transition planning/care coordination assessment. RN CM introduced self and role at [facility]. Patient sitting in chair, alert and oriented, at bedside. Patient willing to participate in assessment and is able to answer all questions appropriately. Care providers, pharmacy, and demographics verified. Patient wishes to discharge home, denies need for home health at this time. Patient states he has no further needs or concerns at this time. CM to follow for discharge planning needs that may arise. PCP: Wang Specialists: angel Hoffman Pharmacy: [facility] Insurance: [facility] Prescription Benefit: yes Living Will/HPOA: none LNOK: Living Arrangements: Patient lives with in a 2 story home with bed and bath on first floor. Patient states he is independent at home and able to ambulate stairs Transportation: self, DME/HHC: Patient denies DME in the home. Patient denies previous HHC Disposition Plan: Patient to discharge home with family support and follow-up plans in place. Colleen VICENTE, RN, CM
== END 2022-06-11 12:46 | disposition home or self-care (01) ==
LOC: SDC 09:20 → AC 09:22 → PCU 11:18 → SDC 06-17 13:36
PROVIDERS: Anesthesiology; PCP Family Medicine; Referring Provider Surgery Trauma Surgery; Visit Provider Surgery Trauma Surgery
PROC: (CPT 34203; principal; 2022-06-10 10:40)
DX: I72.4 Aneurysm of artery of lower extremity (principal); I74.3 Embolism and thrombosis of arteries of the lower extremities; R10.9 Unspecified abdominal pain; R31.9 Hematuria, unspecified; I10 Essential (primary) hypertension; E07.9 Disorder of thyroid, unspecified; Z79.82 Long term (current) use of aspirin; Z79.01 Long term (current) use of anticoagulants; Z87.891 Personal history of nicotine dependence; Z95.820 Peripheral vascular angioplasty status with implants and grafts
CPT/HCPCS: 34203; 01500; 36415; 76000; 80048; 84443; 85025; 85730; 86850; 86900; 86901; 88304; 93005; 99252; C1753; C1874; J7120; C1725; C1757; C1769; C1894; G0463; J2405

== ENCOUNTER → 2022-08-13 | Outpatient (CLI) | payer MEDICARE, SELFPAY ==
--- NOTE | 2022-08-13 09:50 | ADUL_ITS ---
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 Iliac Artery, dist = 107.6 cm./sec. Common Femoral Artery, mid = 60 cm./sec. Supf Femoral Artery, prox = 47.8 cm./sec. Supf Femoral Artery, mid = 52.7 cm./sec. SFA mid, prox stent, 33 cm/sec. SFA mid/dist, mid stent, 29.2 cm/sec. SFA dist, dist stent, 44.3 cm/sec. Profunda Femoral Artery = 52.7 cm./sec. Popliteal artery, no flow. Popliteal to prox FOUNTAIN CLERK bypass. Prox anastomosis, 59.4 cm/sec. Prox graft, 75.7 cm/sec. Mid graft, 48.3 cm/sec. Distal graft, 50.4 cm/sec. Distal anastomosis, 50.4 cm/sec. Post. Tibial Artery, prox = 87.5 cm./sec. Post. Tibial Artery, mid = 151.2 cm./sec. Post. Tibial Artery, dist = 94.2 cm./sec. Peroneal artery and Anetrior Tibial artery is retorograde flow. VL/US Art Duplex Unilat Lower Ext Interpretation Summary Right lower extremity vessels patent with above knee popliteal to PT bypass. No evidence of stenosis within bypass or stent. Retrograde flow in peroneal and anterior tibial arterie s. Ordering Physician: Cleopatra Singh Referring Physician: Mark Piña Performed By: Colleen Foster RVT
--- NOTE | 2022-08-13 09:50 | ART_ITS ---
Reason For Study: Bilateral popliteal aneurysm, S/P above-knee Pop to PT bypass Procedure A bilateral lower extremity continuous wave Doppler with analog waveform analysis and ankle brachial indexes. Left Segmental Pressures Left brachial= 147mmHg. Left posterior tibial artery = 186mmHg. Left dorsalis pedis artery = 151mmHg. The left dorsalis pedis waveforms are triphasic. The left posterior tibial artery waveforms are triphasic. Right Segmental Pressures Right brachial= 141mmHg. Right posterior tibial artery = 162mmHg. Right dorsalis pedis artery = 152mmHg. The right dorsalis pedis waveforms are biphasic. The right posterior tibial artery waveforms are triphasic. Indices The right ankle brachial index by the dorsalis pedis is 1.03. The right ankle brachial index by the posterior tibial artery is 1.10. The left ankle brachial index by the dorsalis pedis is 1.03. The left ankle brachial index by the posterior tibial artery is 1.27. VL/Ankle Brachial Index Interpretation Summary Right ROXANNA 1.1, normal. Doppler/PVR waveforms of the right ankle normal at rest. Left ROXANNA 1.27, normal. Doppler/PVR waveforms of the left ankle normal at rest. Ordering Physician: Cleopatra Singh Referring Physician: Mark Piña Performed By: Colleen Foster RVT
== END | disposition home or self-care (01) ==
PROVIDERS: PCP Family Medicine; Referring Provider Physician Assistant; Visit Provider Physician Assistant
DX: I72.4 Aneurysm of artery of lower extremity (principal); I74.3 Embolism and thrombosis of arteries of the lower extremities; Z48.812 Encounter for surgical aftercare following surgery on the circulatory system
CPT/HCPCS: 93922; 93926

== ENCOUNTER → 2022-12-09 | Outpatient (CLI) | payer MEDICARE, SELFPAY ==
--- NOTE | 2022-12-09 10:00 | ADUL_ITS ---
Reason For Study: S/P Rt POP A Stent Right Velocities Ext. Iliac Artery, dist = 70.9 cm./sec. Common Femoral Artery, mid = 52.8 cm./sec. Supf Femoral Artery, prox = 49.0 cm./sec. Supf Femoral Artery, mid = 46.2 cm./sec. Stent, prox. = 41.5 cm./sec. Stent, mid = 31.1 cm./sec. Stent, distal = 32.0 cm./sec. Supf Femoral Artery, dist. = 33.9 cm./sec. Popliteal artery, no flow. Popliteal to prox DERRICK BOAT LEVERMAN bypass. Prox anastomosis, 56.6 cm/sec. Prox graft, 36.7 cm/sec. Mid graft, 37.7 cm/sec. Distal graft, 35.8 cm/sec. Distal anastomosis, 38.6 cm/sec. Post. Tibial Artery, prox = 55.6 cm./sec. Post. Tibial Artery, mid = 96.4 cm./sec. Post. Tibial Artery, dist = 98.6 cm./sec. Ant. Tibial Artery, prox = 28.5 cm./sec. Ant. Tibial Artery, mid = 18.6 cm./sec. Retrograde flow noted throughout Peroneal artery and at distal SAMANTA. Procedure The exam was diagnostic. Exam performed in department. /US Art Duplex Unilat Lower Ext Interpretation Summary Right lower extremity SFA-PT bypass and stent patent with normal velocities and no evidence of stenosis. Peroneal and Anterior Tibial arteries with retrograde flow. Ordering Physician: Cleopatra Singh Referring Physician: Cleopatra Singh Performed By: Jarvis Galvez, Lisette
--- NOTE | 2022-12-09 10:00 | ART_ITS ---
Reason For Study: S/P Rt POP A stent Procedure A bilateral lower extremity continuous wave Doppler with analog waveform analysis and ankle brachial indexes. Left Segmental Pressures Left brachial= 166mmHg. Left posterior tibial artery = 190mmHg. Left dorsalis pedis artery = 188mmHg. The left posterior tibial artery waveforms are triphasic. The left dorsalis pedis waveforms are triphasic. Right Segmental Pressures Right brachial= 161mmHg. Right posterior tibial artery = 172mmHg. Right dorsalis pedis artery = 176mmHg. The right posterior tibial artery waveforms are triphasic. The right dorsalis pedis waveforms are biphasic. Indices The right ankle brachial index by the posterior tibial artery is 1.04. The right ankle brachial index by the dorsalis pedis is 1.06. The left ankle brachial index by the posterior tibial artery is 1.14. The left ankle brachial index by the dorsalis pedis is 1.13. VL/Ankle Brachial Index Interpretation Summary Right ROXANNA 1.06, normal. Doppler/PVR waveforms of the right leg normal at rest. Dorsalis pedis with inverted waveforms. Left ROXANNA 1.14, normal. Doppler/PVR waveforms of the left leg normal at rest. Ordering Physician: Cleopatra Singh Referring Physician: Mark Piña Performed By: Jarvis Galvez RVT
== END | disposition home or self-care (01) ==
LOC: CVS 09:58
PROVIDERS: PCP Family Medicine; Referring Provider Physician Assistant; Visit Provider Physician Assistant
DX: I72.4 Aneurysm of artery of lower extremity (principal); I74.3 Embolism and thrombosis of arteries of the lower extremities; Z48.812 Encounter for surgical aftercare following surgery on the circulatory system
CPT/HCPCS: 93922; 93926

== ENCOUNTER → 2023-06-11 | Outpatient (CLI) | payer MEDICARE, SELFPAY ==
--- NOTE | 2023-06-11 09:23 | ART_ITS ---
Reason For Study: HX RLE BPG - Stent Procedure A bilateral lower extremity continuous wave Doppler with analog waveform analysis and ankle brachial indexes. Left Segmental Pressures Left brachial= 144mmHg. Left posterior tibial artery = 180mmHg. Left dorsalis pedis artery = 159mmHg. Left digit = 165 mmHg. The left posterior tibial artery waveforms are triphasic. The left dorsalis pedis waveforms are triphasic. Right Segmental Pressures Right brachial= 143mmHg. Right posterior tibial artery = 171mmHg. Right dorsalis pedis artery = 161mmHg. Right digit = 147 mmHg. The right posterior tibial artery waveforms are triphasic. The right dorsalis pedis waveforms are biphasic. Indices The right ankle brachial index by the posterior tibial artery is 1.19. The right ankle brachial index by the dorsalis pedis is 1.12. The right digital-brachial index is 1.02. The left ankle brachial index by the posterior tibial artery is 1.25. The left ankle brachial index by the dorsalis pedis is 1.10. The left digital-brachial index is 1.15. VL/Ankle Brachial Index Interpretation Summary Right ROXANNA 1.19, normal. TBI and Doppler/PVR waveforms of the right ankle normal at rest. Left ROXANNA 1.25, normal. TBI and Doppler/PVR waveforms of the left ankle normal a t rest Ordering Physician: Cleopatra Aguirre Referring Physician: Wang Flores Performed By: Jarvis Galvez RVT
--- NOTE | 2023-06-11 09:23 | ADU_ITS ---
Reason For Study: BLE POP A Aneurysm / RLE BPG - Stent Right Velocities Left Velocities Ext. Iliac Artery, dist = 87.0 cm./sec. Ext Iliac Artery, dist = 105.8 cm./sec. Common Femoral Artery, mid = 47.8 cm./sec. Common Femoral Artery, mid = 65.6 cm./sec. Profunda Femoral Artery, prox = 33.0 cm./sec. Supf. Femoral Artery, prox = 72.4 cm./sec. Supf Femoral Artery, prox = 40.4 cm./sec. Supf. Femoral Artery, mid = 77.9 cm./sec. Supf Femoral Artery, mid = 45.3 cm./sec. Supf. Femoral Artery, dist = 42.8 cm./sec. Supf Femoral Artery, dist. = 33.0 cm./sec. Profunda Femoral Artery = 26.3 cm./sec. Stent noted Popliteal Artery, proximal, = 25.2 cm./sec. Stent, prox. = 30.6 cm./sec. POP A measures approximately 1.30cm x 1.12cm in Stent, mid = 31.8 cm./sec. transverse axis and 1.17cm in long axis. Stent, distal = 44.1 cm./sec. Post. Tibial Artery, prox = 47.2 cm./sec. Popliteal artery, no flow. Post Tibial Artery, mid = 53.7 cm./sec. Popliteal to prox WELFARE SPECIALIST bypass noted Post Tibial Artery, dist. = 40.6 cm./sec. Prox anastomosis, 45.3 cm/sec. Peroneal Artery, prox = 35.1 cm./sec. Prox graft, 42.8 cm/sec. Peroneal Artery, mid = 52.6 cm./sec. Mid graft, 41.6 cm/sec. Peroneal Artery,dist. = 32.9 cm./sec. Distal graft, 31.8 cm/sec. Ant.Tibial Artery, prox = 38.4 cm./sec. Distal anastomosis, 28.1 cm/sec. Ant Tibial Artery, mid = 50.4 cm./sec. Post. Tibial Artery, prox = 61.3 cm./sec. Ant. Tibial Artery, distal = 49.3 cm./sec. Post. Tibial Artery, mid = 96.4 cm./sec. Post. Tibial Artery, dist = 92.0 cm./sec. Ant. Tibial Artery, prox = 17.9 cm./sec. Ant. Tibial Artery, mid = 21.6 cm./sec. Ant. Tibial Artery, prox = 22.6 cm./sec. Retrograde flow noted throughout Peroneal artery. Procedure The exam was diagnostic. VL/US Art Duplex Bilat Lower Ext Interpretation Summary Patent right lower extremity poplitea-PT bypass with normal velocities and no e vidence of stenosis. Stent in proximal anastomosis patent with normal velocities. Retrograde flow in right peroneal artery. Left lower extremity arteries patent with normal velocities and no evidence of stenosis. 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
== END | disposition home or self-care (01) ==
LOC: CVS 09:22
PROVIDERS: PCP Family Medicine; Referring Provider Physician Assistant; Visit Provider Physician Assistant
DX: Z48.812 Encounter for surgical aftercare following surgery on the circulatory system (principal); I72.4 Aneurysm of artery of lower extremity
CPT/HCPCS: 93922; 93925

== ENCOUNTER → 2023-12-17 | Outpatient (CLI) | payer MEDICARE, SELFPAY ==
[2023-12-17 17:22] LABS: Anion Gap 7 (5-15); BUN 19 mg/dL (7-18); Chloride 108 mmol/L (98-107); Creatinine, Serum 1.12 mg/dL (0.70-1.30); EST Glomerular Filtration Rate 70 mL/min (>60); Est Glom Filt Rate - Afr Amer 84 mL/min (>60); Glucose 103 mg/dL (74-106); Potassium 3.2 mmol/L (3.5-5.1); Sodium Level 139 mmol/L (136-145)
== END | disposition home or self-care (01) ==
LOC: LAB 15:26
PROVIDERS: PCP Family Medicine; Referring Provider Surgery Trauma Surgery; Visit Provider Surgery Trauma Surgery
DX: I72.4 Aneurysm of artery of lower extremity (principal)
CPT/HCPCS: 36415; 80048

== ENCOUNTER 2024-02-25 12:25 | Day surgery (SDC) | payer MEDICARE, SELFPAY ==
[2024-02-25] VITALS (7 sets, daily range): BP systolic 119–137; BP diastolic 74–88; PULSE 50–72; RESP 16–18; TEMP 36.6–37.1; O2SAT 93–100; BMI 27.8
--- NOTE | 2024-02-25 12:52 | HP.PCM_ITS ---
History and Physical Date of Admission: 02/25/24 Nurse's Note: OV 01.22.24 f/u for GI bleed that started in November. Pt reports extreme fatigue for the past 4 year, and having blood clots which prevented him from getting an EGD. Pt feels COVID is possible the cause of what he has been experiencing. Has been on a soft bland diet and water since November 2023. Pt still tries to walk daily for exercise. Has concerns about taking pantoprazole. [facility] Medical History (Updated 01/23/24 @ 07:59 by Sabrina Horton NP-C) Esophagitis Wears glasses Kidney stone DVT (deep venous thrombosis) Excessive bleeding Back pain Injury of back Injury of head and neck Gastric reflux Former smoker History of pain when walking History of edema History of echocardiogram History of stress test Cardiology follow-up encounter Rectal bleed Hypertension Thyroid disease Arthritis Arterial aneurysm (~2020) Surgical History Hx of surgical procedure H/O hand surgery History of cholecystectomy S/P popliteal-distal bypass surgery (~02/2021) Family History Other Arthritis Malignant hyperthermia due to anesthesia Thyroid disorder Social History Smoking Status: Former smoker HPI HPI Chief Complaint: follow up from surgery Details: NGUYỄN HASSAN, is a 68 M who presents to the office today for establishment with I following hospitalization at [facility] for hematemesis arising from Jazmine-Tuttle tear, esophageal ulcers and esophagitis. Underwent urgent EGD after rapid transfusion of 4 units of PRBCs, given Kcentra and FFP; 2 bleeding esophageal ulcers were cauterized and jazmine-tuttle tear was closed with hemospray and epinephrine injection, clips attempted but tissue was too thin to hold. H.pylori negative. History of taking Xarelto and baby aspirin due to DVT and lower extremity aneurysm with stenting. Aspirin stopped for only 2 days, currently remains off of Xarelto. He was unable to undergo repeat EGD to verify esophageal healing at [facility] due to loss of vascular access; with no way to administer medicines. Reports that any/all peripheral IVs placed had failed and resulted in clots to bilateral arms. A central venous catheter had to be placed for hospitalization use. Pt presents current concerns over obtaining and maintaining vascular access for the EGD; states he's willing to try the procedure awake. He denies other recent infection or exposure to ill persons, no fever, chills, no vomiting since hematemesis, no heartburn. He reports bloating, difficulty swallowing at times, states he always has to have a full glass of water with every meal; reports early satiety. Complains of complete BMs only once or twice a week, the remainder stools are fragmented and very firm. Denies taking laxative, reports fiber content of meals is way lower than normal. Reports increasing fatigue is a major concern as he is used to being very physically active and fit. ROS Const Constitutional: Positive for fatigue, decreased energy, weakness and weight change (weight loss); No chills, excessive sweating, fever(s) or abnormal sleep pattern Eyes Eyes: No change in vision ENT ENT: Positive for difficulty swallowing; No abnormal hearing Resp Respiratory: No cough Cardio Cardiology: Positive for shortness of breath; No excessive sweating Gastro GI: Positive for bloating, change in bowel habits, change in stool character, constipation, difficulty swallowing and feeling full early; No abdominal pain, belching, coffee ground emesis, cramping, diarrhea, heartburn, excessive flatus, incontinent of stools, Vomiting blood/hematemesis, Blood in stool, loose stools, Black,tarry stools, nausea/dyspepsia, pain with swallowing or vomiting Genitourinary Male: No difficulty urinating Musc Musculoskeletal: No abnormal gait Skin Skin: Positive for itchy eyes Neuro Neurology: Positive for weakness; No abnormal gait or abnormal hearing Psych Psychiatric: No abnormal sleep pattern Endo Endocrine: Positive for fatigue and weight change (weight loss); No excessive sweating Aller/Imm Allergy/Immunologic: Positive for itchy eyes; No food intolerance Bradley/Lymp Hematologic/Lymphatic: No easy bleeding or easy bruising Exam Const General: cooperative, healthy appearing and no acute distress Nutritional Appearance: average body habitus Orientation: alert [facility] Head: normal to inspection Ears: hearing grossly normal bilaterally Nose: external nose normal Face and sinus: normal facial exam and face symmetric Eyes General: appearance normal, both eyes and all related structures Sclera: sclerae normal Neck Neck: normal visual inspection and full ROM Neck mass: No Chest Chest palpation & inspection: normal inspection of the chest Resp Effort & Inspection: normal respiratory effort, able to speak in complete sentences and symmetric chest movement GI Inspection: normal to inspection Auscultation: normal bowel sounds Palpation: soft and no hepatosplenomegaly Skin General: no rashes or lesions noted and no jaundice Neuro General: patient alert, patient awake and patient oriented x3 Cognition: normal cognition Speech: speech normal Gait: normal gait Extrem General: normal to inspection and full ROM Psych Appearance: grossly normal and well kempt Mental Status: mental status grossly normal Mood: congruent mood Affect: normal affect Speech and Movement: speech and movement normal Attitude: cooperative Thought Process: normal Judgment: judgment good Assessment and Plan Assessment and Plan (1) History of esophageal surgery: Status: Acute Plan: NGUYỄN HASSAN, is a 68 M who presents to the office today for establishment with BGI following hospitalization at [facility] for hematemesis arising from Jazmine-Tuttle tear, esophageal ulcers and esophagitis. Differential diagnoses include: esophagitis, gastroparesis, idiopathic constipation, pelvic floor dysfunction. * order repeat EGD, discussed vascular access concerns * will need gastric emptying study for early satiety, possible esophageal manometry for dysphagia, sitz marker study for chronic constipation * defer labs at this time as he is scheduled to see vascular surgeon, , later today. I have examined the patient and the H&P has been reviewed. There are no clinical changes since date of exam.
--- NOTE | 2024-02-25 13:57 | NURSING ---
Pt has history of unsuccessful iv usage in upper extremities due to blood clots in arms. discussed with anesthesia and they were okay with starting iv in foot.
--- NOTE | 2024-02-25 14:31 | PCM.PRE.AN2 ---
ASA Classification* ASA Classification ASA Classification: 3 Assessment & Plan Anesthesia* Anesthesia Assessment Anesthesia Assessment: Discussed sedation and/or anesthesia options, risks, benefits, and alternatives with patient/parents/legal guardian/POA. Questions invited. The patient/parents/legal guardian/POA seems to understand and agrees to proceed with anesthesia plan. Reviewed the physical assessment, medical history, allergy history and patient home medications list prior to surgery/procedure/anesthetic and documented any changes. Performed airway and anesthesia risk assessments. Anesthesia Type Anesthesia Type: MAC History Source History Obtained from:: Patient and Chart Anesthesia Focused Assessment* Temperature: 97.9 F Pulse Rate: 50 Blood Pressure: 137/88 Respiratory Rate: 16 Pulse Ox: 100 Oxygen Delivery Method: Room Air Airway Assessment Mouth opens: >3 cm Mallampati Score: III Teeth Condition: Caps/Crowns (Patient has a left lower crown. It is tight.) Neck Range of motion (ROM): Full ROM Focused Labs Anesthesia Preop lab: CBC WBC 9.4 K/mm3 (4.4-11.0) 06/11/22 07:14 RBC 4.20 M/mm3 (4.6-6.2) L 06/11/22 07:14 Hgb 13.5 g/dL (13.0-16.5) 06/11/22 07:14 Hct 42.7 % (40-54) 06/11/22 07:14 Plt Count 233 K/mm3 (150-450) 06/11/22 07:14 CHEMISTRY Potassium 3.2 mmol/L (3.5-5.1) L 12/17/23 15:33 Sodium 139 mmol/L (136-145) 12/17/23 15:33 BUN 19 mg/dL (7-18) H 12/17/23 15:33 Creatinine 1.12 mg/dL (0.70-1.30) 12/17/23 15:33 Glucose 103 mg/dL (74-106) 12/17/23 15:33 TSH 3.48 uIU/mL (0.358-3.74) 06/04/22 14:52 COAG Pre-Assessment Diagnosis/Proposed Procedure Planned Operative Procedure(s): EGD Anesthesia History 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 When Was Last Pacemaker Check QUESTION #4 FULL TEXT: You/Your Family Experience fever (hyperthermia) with Anesthesia Last Oral Intake Last Oral intake: Last Oral Intake NPO since 09:00 02/25/24 13:25 Meds taken in AM with sips of Yes 02/25/24 13:25 water? Meds patient instructed to see medlist 02/25/24 13:25 take am of surgery Any additional information?: Yes Meds taken in AM with sips of water?: Yes PONV PONV - business services tech: PONV - business services tech Female No 02/19/24 13:34 HX of Motion Sickness Yes 02/19/24 13:34 HX of N/V After Surgery No 02/19/24 13:34 Non-Smoker Yes 02/19/24 13:34 Duration of Surgery greater No 02/19/24 13:34 than 60 minutes Number of Risk Factors 2 02/19/24 13:34 PONV Score Moderate Risk 02/19/24 13:34 Height & Weight Height & Weight: Anesthesia: Height & Weight Height 5 ft 8 in 02/25/24 13:25 Weight: 83 kg 02/25/24 13:25 Body Mass Index (BMI) 27.8 02/25/24 13:25 Respiratory Assessment Respiratory Assessment - business services tech: Respiratory Tract Infection Hx - business services tech Hx Respiratory Tract Infection No 02/19/24 13:34 Any additional information?: Yes Hx Respiratory Tract Infection: Yes (Patient had COVID 4 weeks ago. Lungs are clear at this time.) STOP Sleep Apnea STOP Sleep Apnea - business services tech: STOP Sleep Apnea - business services tech Hx Hypertension Yes: CONTROLLED WITH MED 02/19/24 13:34 Hx Sleep Apnea No 02/19/24 13:34 CPAP BIPAP Do you snore loudly (louder Yes 02/19/24 13:34 than talking or can be heard Do you often feel tired/ No 02/19/24 13:34 fatigued/ sleepy during daytime? Has anyone observed you stop No 02/19/24 13:34 breathing during sleep? STOP Results Positive 02/19/24 13:34 QUESTION #5 FULL TEXT : Do you snore loudly (louder than talking or can be heard through closed doors)? 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 Specify any problems Hx of Preganancy in last 3 N/A 02/19/24 13:34 Months Nurse Filling Out Transfusion DSCHRIBER 02/19/24 13:34 & Questions: Date: 02/19/24 02/19/24 13:34 Time: 13:37 02/19/24 13:34 Patient unable to answer at this time (ie. confused, unrespo /Reproduction History /Reproductive History - business services tech: /Reproductive Hx- business services tech Hx Now No 02/19/24 13:34 Gestational Age (in weeks): EDC: Hx Hx Para Hx Section SAB No 02/19/24 13:34 PFSH Medical History Jazmine-Zarate tear Prostate disease Restless legs Difficulty swallowing History of GI bleed Esophagitis Wears glasses DVT (deep venous thrombosis) Back pain Injury of back Injury of head and neck Gastric reflux Former smoker History of pain when walking History of edema History of echocardiogram History of stress test Cardiology follow-up encounter Hypertension Thyroid disease Arthritis Arterial aneurysm (~2020) Home Medications ?Medication ?Instructions ?Recorded ?Last Taken ?Type amlodipine 2.5 mg tablet (Norvasc) 2.5 mg PO 1100 blood pressure 03/20/22 02/25/24 History levothyroxine 25 mcg tablet 25 mcg PO DAILY thyroid 03/20/22 02/25/24 History (Synthroid) losartan 100 mg tablet (Cozaar) 100 mg PO QHS blood pressure 03/26/22 Unknown History aspirin 81 mg tablet,delayed 81 mg PO DAILY heart health 12/31/22 02/22/24 History release (Adult Aspirin Regimen) pantoprazole 40 mg granules 40 mg PO BID 12/17/23 02/09/24 History delayed-release for susp in packet (Protonix) tamsulosin 0.4 mg capsule (Flomax) 0.4 mg PO 1400 12/17/23 Unknown History Allergy/AdvReac Type Severity Reaction Status Date / Time atorvastatin Allergy Other Verified 02/25/24 12:46 codeine AdvReac Nausea/Vom/ Verified 02/25/24 12:46 Diarrhea antihistamines Allergy Intermediate Other Uncoded 01/22/24 15:46 Family History Other Arthritis Malignant hyperthermia due to anesthesia Thyroid disorder Surgical History History of esophagogastroduodenoscopy (EGD) Hx of vascular surgery Hx of surgical procedure H/O hand surgery History of cholecystectomy S/P popliteal-distal bypass surgery (~02/2021) Social History Smoking Status: Former smoker Review of Systems (Anesthesia) ROS Narrative System reviewed and no additional complaints, except as documented.
--- NOTE | 2024-02-25 15:14 | PCM.POST.ANE ---
Anesthesia: Postop Eval I Current Vital Signs Temperature: 98.8 F Pulse Rate: 72 Blood Pressure: 123/86 Respiratory Rate: 18 Pulse Ox: 94 Assessment Airway patent: Yes Spontaneous unlabored respirations: Yes nausea: No Vomiting: No Anesthesia Complication: No Fluid Hydration Crystalloid volume administer (ml): 10 Total IV fluid infused: 10 Progress Note Anesthesia document: Postop Eval 1 completed: Yes
--- NOTE | 2024-02-25 15:18 | OP.CCLET_ITS ---
02/25/2024 Mark Piña Md Re : Upper GI endoscopy procedure for Nico Vasquez Dear Dr. Piña This procedure was performed on Sunday, February 25, 2024. My impressions and recommendations are as follows: Impressions : - Jazmine-Zarate tear. Treated with a heater probe. - Normal stomach. - Small hiatal hernia. - No gross lesions in the duodenal bulb. - Normal first portion of the duodenum. - No specimens collected. Recommendations : - Discharge patient to home. - Resume previous diet. - Continue present medications. My findings are described in the full procedure note, which is enclosed. If I can be of further assistance, please feel free to contact me at . Sincerely, Clay Arambula, 02/25/2024 3:17:48 PM This report has been signed electronically.
--- NOTE | 2024-02-25 15:18 | OP.EGD_ITS ---
Patient Name: Nico Vasquez Procedure Date: 02/25/2024 2:29 PM Date of : 1955 Age: 68 Procedure: Upper GI endoscopy Indications: Functional Dyspepsia, Dysphagia Providers: Clay Arambula DO Referring MD: Clay Arambula DO Medicines: Monitored Anesthesia Care Patient Profile: This is a 68 year old male. Refer to note in patient chart for documentation of history and physical. Patient has symptoms of chronic dysphagia, chronic heartburn and acute vomiting. Complications: No immediate complications. Procedure: Pre-Anesthesia Assessment: - Prior to the procedure, a History and Physical was performed, and patient medications and allergies were reviewed. The patient is competent. The risks and benefits of the procedure and the sedation options and risks were discussed with the patient. All questions were answered and informed consent was obtained. Patient identification and proposed procedure were verified by the physician in the pre-procedure area. Mental Status Examination: alert and oriented. Airway Examination: normal oropharyngeal airway and neck mobility. Respiratory Examination: clear to auscultation. CV Examination: normal. Prophylactic Antibiotics: The patient does not require prophylactic antibiotics. Prior Anticoagulants: The patient has taken no anticoagulant or antiplatelet agents except for NSAID medication. ASA Grade Assessment: II - A patient with mild systemic disease. After reviewing the risks and benefits, the patient was deemed in satisfactory condition to undergo the procedure. The anesthesia plan was to use monitored anesthesia care (MAC). Immediately prior to administration of medications, the patient was re-assessed for adequacy to receive sedatives. The heart rate, respiratory rate, oxygen saturations, blood pressure, adequacy of pulmonary ventilation, and response to care were monitored throughout the procedure. The physical status of the patient was re-assessed after the procedure. After obtaining informed consent, the endoscope was passed under direct vision. Throughout the procedure, the patient's blood pressure, pulse, and oxygen saturations were monitored continuously. The Endoscope was introduced through the mouth, and advanced to the second part of duodenum. The upper GI endoscopy was accomplished without difficulty. The patient tolerated the procedure well. Scope In: 3:00:50 PM Scope Out: 3:07:17 PM Total Procedure Duration Time 0 hours 6 minutes 27 seconds Findings: A 8 mm bleeding Jazmine-Zarate tear with stigmata of recent bleeding was found. Coagulation for hemostasis using heater probe was successful. Estimated blood loss was minimal. The entire examined stomach was normal. A small hiatal hernia was present. No gross lesions were noted in the duodenal bulb. The first portion of the duodenum was normal. Impression: - Jazmine-Zarate tear. Treated with a heater probe. - Normal stomach. - Small hiatal hernia. - No gross lesions in the duodenal bulb. - Normal first portion of the duodenum. - No specimens collected. Recommendation: - Discharge patient to home. - Resume previous diet. - Continue present medications. Procedure Code(s): --- Professional --- 69798, Esophagogastroduodenoscopy, flexible, transoral; with control of bleeding, any method CPT copyright 2021 [employer]. All rights reserved. The codes documented in this report are preliminary and upon field pipelines supervisor review may be revised to meet current compliance requirements. Clay Arambula DO 02/25/2024 3:17:48 PM This report has been signed electronically. Number of Addenda: 0 Note Initiated On: 02/25/2024 2:29 PM
--- NOTE | 2024-02-25 17:01 | POSTOPAN2_ITS ---
Anesthesia Postop Eval I Sum Postop Eval Completion status Anesthesia document: Postop Eval 1 completed: Yes Anesthesia Postop Eval I Summary Anesthesia Postop Eval I Summary: Anesthesia Postop Eval I: Assessment Summary Airway patent Yes 02/25/24 15:15 [employer] MANAGER.CSIR Spontaneous unlabored Yes 02/25/24 15:15 [employer] MANAGER.CSIR respirations Mental status nausea No 02/25/24 15:15 [employer]ISION MANAGER.CSIR Vomiting No 02/25/24 15:15 [employer]BER OF [employer] DIVISION MANAGER.CSIR Anesthesia Postop Eval I: Fluid Summary Crystalloid volume administer 10 02/25/24 15:15 CH[employer] DIVISION MANAGER.CSIR (ml) Colloids volume administered ( ml) Blood Product volume administered (ml) Total IV fluid infused 10 02/25/24 15:15 CH[employer] OF [employer] DIVISION MANAGER.CSIR Anesthesia Postop Eval I: Summary Notes Anesthesia Complication No 02/25/24 15:15 CHAMBER OF [employer] DIVISION MANAGER.CSIR Anesthesia Complication Comment: Post-operative progress note Anesthesia: Postop Eval II Evaluation Mental status: Awake Pain Level: 0 nausea: No Vomiting: No
--- NOTE | 2024-02-25 17:01 | PCM.POSTANE2 ---
Anesthesia Postop Eval I Sum Postop Eval Completion status Anesthesia document: Postop Eval 1 completed: Yes Anesthesia Postop Eval I Summary Anesthesia Postop Eval I Summary: Anesthesia Postop Eval I: Assessment Summary Airway patent Yes 02/25/24 15:15 TRUCK DRIVER HELPER.CSIR Spontaneous unlabored Yes 02/25/24 15:15 TRUCK DRIVER HELPER.CSIR respirations Mental status nausea No 02/25/24 15:15 TRUCK DRIVER HELPER.CSIR Vomiting No 02/25/24 15:15 TRUCK DRIVER HELPER.CSIR Anesthesia Postop Eval I: Fluid Summary Crystalloid volume administer 10 02/25/24 15:15 TRUCK DRIVER HELPER.CSIR (ml) Colloids volume administered ( ml) Blood Product volume administered (ml) Total IV fluid infused 10 02/25/24 15:15 TRUCK DRIVER HELPER.CSIR Anesthesia Postop Eval I: Summary Notes Anesthesia Complication No 02/25/24 15:15 TRUCK DRIVER HELPER.CSIR Anesthesia Complication Comment: Post-operative progress note Anesthesia: Postop Eval II Evaluation Mental status: Awake Pain Level: 0 nausea: No Vomiting: No
== END 2024-02-25 16:11 | disposition home or self-care (01) ==
LOC: EN 12:29 → AC 12:31
PROVIDERS: PCP Family Medicine; Referring Provider Family Medicine; Visit Provider Internal Medicine Gastroenterology
PROC: 0DJ08ZZ Inspection of Upper Intestinal Tract, Via Natural or Artificial Opening Endoscopic (ICD-10-PCS; CPT 43235; principal; 2024-02-25 13:55)
DX: K22.6 Gastro-esophageal laceration-hemorrhage syndrome (principal); K44.9 Diaphragmatic hernia without obstruction or gangrene; I10 Essential (primary) hypertension; Z86.718 Personal history of other venous thrombosis and embolism; Z87.891 Personal history of nicotine dependence; K21.9 Gastro-esophageal reflux disease without esophagitis; Z79.82 Long term (current) use of aspirin; Z98.890 Other specified postprocedural states; E07.9 Disorder of thyroid, unspecified
CPT/HCPCS: 43255; A4216; J2405

== ENCOUNTER → 2024-04-22 | Outpatient (CLI) | payer MEDICARE, SELFPAY ==
--- NOTE | 2024-04-22 12:33 | ART_ITS ---
Reason For Study: HX RLE BPG/Stent Procedure A bilateral lower extremity continuous wave Doppler with analog waveform analysis and ankle brachial indexes. Left Segmental Pressures Left brachial= 122mmHg. Left posterior tibial artery = 175mmHg. Left dorsalis pedis artery = 163mmHg. Left digit = 136 mmHg. The left posterior tibial artery waveforms are triphasic. The left dorsalis pedis waveforms are triphasic. Right Segmental Pressures Right brachial= 123mmHg. Right posterior tibial artery = 169mmHg. Right dorsalis pedis artery = 152mmHg. Right digit = 125 mmHg. The right posterior tibial artery waveforms are triphasic. The right dorsalis pedis waveforms are triphasic. Indices The right ankle brachial index by the posterior tibial artery is 1.37. The right ankle brachial index by the dorsalis pedis is 1.24. The right digital-brachial index is 1.02. The left ankle brachial index by the posterior tibial artery is 1.42. The left ankle brachial index by the dorsalis pedis is 1.33. The left digital-brachial index is 1.11. VL/Ankle Brachial Index Interpretation Summary Right ROXANNA 1.37, normal. TBI and Doppler/PVR waveforms of the right ankle normal at rest. Left ROXANNA 1.42, normal. TBI and Doppler/PVR waveforms of the left ankle normal a t rest. Ordering Physician: Cleopatra Aguirre Referring Physician: Mark Piña Performed By: Jarvis Galvez RVT
--- NOTE | 2024-04-22 12:33 | ADUL_ITS ---
Reason For Study: HX RLE BPG / Stent Right Velocities Ext. Iliac Artery, dist = 59.8 cm./sec. Common Femoral Artery, mid = 42.7 cm./sec. Profunda Femoral Artery, prox = 20.5 cm./sec. Supf Femoral Artery, prox = 35.7 cm./sec. Supf Femoral Artery, mid = 40.9 cm./sec. Supf Femoral Artery, dist. = 37.4 cm./sec. Stent noted Stent, prox. = 34.8 cm./sec. Stent, mid = 32.2 cm./sec. Stent, distal = 35.7 cm./sec. Post Stent = 34.5 cm./sec. Popliteal artery, no flow. Popliteal to prox MARKET RESEARCH INTERN bypass noted Prox anastomosis, 54.0 cm/sec. Prox graft, 53.1 cm/sec. Mid graft, 44.4 cm/sec. Distal graft, 48.8 cm/sec. Distal anastomosis, 54.0 cm/sec. Post. Tibial Artery, prox = 54.0 cm./sec. Post. Tibial Artery, mid = 67.4 cm./sec. Post. Tibial Artery, dist = 84.6 cm./sec. Retrograde flow noted throughout SAMANTA Retrograde flow noted throughout Peroneal artery. VL/US Art Duplex Unilat Lower Ext Interpretation Summary Patent right SFA-posterior tibial artery bypass and stent with normal velocitie s and no evidence of stenosis. Retrograde flow in the anterior tibial artery, peroneal artery; unchanged. Ordering Physician: Wang Flores Referring Physician: Cleopatra Aguirre Performed By: Jarvis Galvez, RVT
== END | disposition home or self-care (01) ==
PROVIDERS: PCP Family Medicine; Referring Provider Physician Assistant; Visit Provider Physician Assistant
DX: Z48.812 Encounter for surgical aftercare following surgery on the circulatory system (principal)
CPT/HCPCS: 93922; 93926

== ENCOUNTER → 2024-09-28 | Outpatient (CLI) | payer MEDICARE, SELFPAY ==
[2024-09-28 09:11] LABS: Absolute Neutrophil Count 2.7 X10^3/uL (2.0-7.7); Basophil# 0.11 X10^3/uL; Basophil% 1.8 % (0-1); Eosinophil# 0.17 X10^3/uL; Eosinophils% 2.8 % (0-5); Hemoglobin 14.6 g/dL (13.0-16.5); Lymphocyte % 41.8 % (19-41); Mean Corpuscular Hgb 32.6 pg (27.0-32.0); Mean Platelet Vol. 9.7 fl (6.2-12.0); Monocyte# 0.42 X10^3/uL; NRBC Flagged by Analyzer 0 % (0-5); Neutrophil # 2.73 X10^3/uL (2.7-7.7); Neutrophil % 45.8 % (47-70); Platelet Count 302 K/mm3 (150-450); RBC Distribution Width CV 12.4 % (11.6-14.6); RBC Distribution Width SD 43.1 fl (35.1-43.9); Red Blood Count 4.48 M/mm3 (4.6-6.2)
== END | disposition home or self-care (01) ==
LOC: LAB 08:35
PROVIDERS: PCP Family Medicine
DX: K92.1 Melena (principal); K22.6 Gastro-esophageal laceration-hemorrhage syndrome; Z98.890 Other specified postprocedural states
CPT/HCPCS: 36415; 85025

== ENCOUNTER → 2024-10-22 | Outpatient (CLI) | payer MEDICARE, SELFPAY ==
--- NOTE | 2024-10-22 16:22 | CT_ITS ---
PROCEDURE: SOFT TISSUE NECK WITH CONTRAST 10/22/2024 REASON FOR EXAM: MELENA, HX OF ESOPHAGEAL SURGERY, TEAR TECHNIQUE: CT of the soft tissues of the neck from the orbits to the upper mediastinum with intravenous contrast. One or more dose reduction techniques were used (e.g., Automated exposure control, adjustment of the mA and/or kV according to patient size, use of iterative reconstruction technique). COMPARISON: None FINDINGS: Airway is patent and without suspicious mucosal mass or nodularity. Tongue base is satisfactory. Tonsillar pillars are within normal limits. Submandibular glands, parotid glands and thyroid gland are within normal limits. No suspicious cervical chain adenopathy. No peritonsillar or retropharyngeal abscess. Globes are intact. Paranasal sinuses and mastoid air cells are within normal limits. No acute osseous abnormality. Mild degenerative changes of the cervical spine. Lung apices are clear. CT/Soft Tissue Neck WITH Contrast IMPRESSION: No acute process, suspicious mass or adenopathy. Reading Location: [facility]
--- NOTE | 2024-10-22 16:22 | CT_ITS ---
EXAM: CT Abdomen and Pelvis With Intravenous Contrast CLINICAL INDICATION: ABDOMINAL PAIN TECHNIQUE: Axial computed tomography images of the abdomen and pelvis with intravenous contrast. This CT exam was performed using one or more of the following dose reduction techniques: automated exposure control, adjustment of the mA and/or kV according to patient size, and/or use of iterative reconstruction technique. COMPARISON: CT Abdomen Pelvis dated 04/05/2023 FINDINGS: LUNG BASES: Unremarkable. No mass. No consolidation. MEDIASTINUM: Small esophageal hiatal hernia. ABDOMEN: LIVER: Hepatomegaly with fatty infiltration. GALLBLADDER AND BILE DUCTS: Unremarkable. No calcified stones. No ductal dilation. PANCREAS: Unremarkable. No mass. No ductal dilation. SPLEEN: Unremarkable. No splenomegaly. ADRENALS: Unremarkable. No mass. KIDNEYS AND URETERS: Left renal cyst. No stones within either kidney. No hydronephrosis. STOMACH AND BOWEL: Fecal retention in the colon consistent with constipation. No obstruction. No mucosal thickening. PELVIS: APPENDIX: No findings to suggest acute appendicitis. BLADDER: Unremarkable. No mass. REPRODUCTIVE: Unremarkable as visualized. ABDOMEN and PELVIS: INTRAPERITONEAL SPACE: Unremarkable. No free air. No significant fluid collection. BONES/JOINTS: No acute fracture. No dislocation. SOFT TISSUES: Umbilical hernia containing fat. VASCULATURE: Scattered calcified atherosclerotic disease of aorta. No abdominal aortic aneurysm. LYMPH NODES: Unremarkable. No enlarged lymph nodes. TUBES, LINES AND DEVICES: Distended stomach. NG tube placement may be beneficial. CT/Abdomen/Pelvis WITH Contrast IMPRESSION: 1. Small esophageal hiatal hernia. 2. Distended stomach. NG tube placement may be beneficial. 3. Hepatomegaly with fatty infiltration. 4. Fecal retention in the colon consistent with constipation. 5. No obstructive uropathy. 6. Umbilical hernia containing fat. Reading Location: [id number]
== END | disposition home or self-care (01) ==
LOC: CT 16:19
PROVIDERS: PCP Family Medicine
DX: K22.6 Gastro-esophageal laceration-hemorrhage syndrome (principal); K92.1 Melena; Z98.890 Other specified postprocedural states
CPT/HCPCS: 70491; 74177; Q9967